=== PATIENT | female | born 1960 | race Caucasian/White ===

== ENCOUNTER 2017-03-20 15:07 | Emergency (ER) | payer SELFPAY ==
--- NOTE | ~2017-03-20 | CT4 ---
[facility]. [facility] A Service of [facility] RADIOLOGY TEXT RESULTS PATIENT: AFTAB SHEPARD LOCATION: SED : 64 UNIT #: [id number] AGE: [address]: Dylan Holman MD SEX: F ORDER DR: [id number] [place] [id number] E MR#: [id number] Acc #: [id number] NAME: AFTAB SHEPARD : 1960 SEX: F STUDY DATE/TIME: 03/20/2017 16:26 UNIT: SED ROOM: STUDY DESCRIPTION: CT Abd and Pelv Wo Cont Attending Physician: Dylan Holman M.D. Ordering Physician: Dylan Holman M.D. Primary Care Physician: Zee Coffman M.D. MEDICAL IMAGING REPORT This report is preliminary unless electronic signature is present. EXAM CT abdomen and pelvis, 03/20 INDICATION Right side groin pain for 4-5 days. TECHNIQUE Axial images were obtained through the abdomen and pelvis without contrast. Multiplanar reformats were obtained. Comparison is made with 03/27/2016. This CT exam was performed with one or more of the following radiation dose reduction techniques: automatic exposure control, adjustment of mA and/or kV according to patient size, and iterative reconstruction. FINDINGS ABDOMEN: Lung bases are clear. Gallbladder is surgically absent. No renal or ureteral stones are seen and there is no hydronephrosis. There is fatty infiltration of the liver. The unenhanced solid organs are otherwise normal. The unopacified GI tract is normal except for colonic diverticulosis. PELVIS: The appendix is normal. There is diffuse sigmoid diverticulosis. There is some fat stranding in the mid sigmoid colon similar in appearance to the prior study suggesting mild acute diverticulitis. The rest of the GI tract is unremarkable. Solid pelvic organs are normal. No lower ureteral stones are seen. The urinary bladder is normal. IMPRESSION 1. No renal or ureteral stones. No hydronephrosis. 2. Mild acute mid sigmoid diverticulitis, similar to the patient's prior exam. [facility] A Service of [facility] RADIOLOGY TEXT RESULTS PATIENT: AFTAB SHEPARD LOCATION: [facility] : 64 UNIT #: [id number] AGE: [address]: Dylan Holman MD SEX: F ORDER DR: 3. There is diffuse colonic diverticulosis. The appendix is normal. 4. Interval cholecystectomy. 5. Fatty infiltration of the liver. Dictated by... Yordan Love Jr., M.D. THIS IS AN ELECTRONICALLY VERIFIED REPORT Yordan Love Jr., M.D. at 03/22/2017 7:35 AM ARTIS/ivan TD: 03/21/2017 02:09 JOB #: [id number] MEDICAL IMAGING REPORT Page 1 of 1
[~2017-03-20 15:07] MED LIST: ALBUTEROL 0.5ML INH; ALBUTEROL17 G1 INH; ALBUTEROL17 GM INH; ALDACTAZIDE 25/1 TA1 PO; ALDACTONE25 MG PO; AMLODIPINE BESYL5 MG PO; AMOXICILLIN PO; ATARAX PO; ATENOLOL; ATIVAN PO; ATIVAN0.5 M1 PO; AVELOX400 M1 PO; BACLOFEN10 MG PO; BACTRIM DS TABL1 TA1 PO; BENADRYL25 M1 PO; BENZONATATE PO; CARAFATE1 G PO; CHLORTHALIDONE25 M1 PO; CIPRO PO; COLCRYS0.6 M2 PO; COMBIVENT14.7 GM INH; CYPROHEPTADINE H4 MG PO; DELTASONE20 MG PO; DICLOFENAC PO; DICYCLOMINE HCL20 MG PO; DISCONTINUED MED; DOXYCYCLINE HY100 M3 PO; DOXYCYCLINE150 MG PO; DUONEB 2.5-0.5 M3 ML NEB; EC-NAPROSYN500 MG PO; ERYTHROMYC3.5 GM OPT OS; EXCEDRIN MIGRAI1 TA1; FIORICET1 TAB DOB; FLAGYL PO; FLEXERIL PO; FLEXERIL10 MG PO; FLONASE 0.05% N16 G1; FLONASE16 GM; FLOVENT7.9 GM INH; GLUCOPHAGE500 MG PO; HIBICLENS118 ML; HYCODAN60 ML 5MG/ PO; HYDROCODON-ACE1 EAC7 PO; IMITREX; IMITREX4 MG/0.5 M SQ; IMITREX6 MG/0.5 M SQ; LEVAQUIN PO; LEVEMIR SUBQ; LIDOCAINE PATCH 5% TOP; LISINOPRIL10 MG PO; LODINE400 MG PO; LORTAB 5/500 TA1 TA1 PO; MAGIC MOUTH WASH PO; MEDROL PO; METFORMIN PO; MILK OF MA800 MG/5 M PO; MOBIC PO; MOBIC15 MG PO; MORGIDOX100 MG PO; MOTRIN600 MG PO; MUCINEX D ER T1 EACH PO; MUCINEX D PO; MYCOSTATIN15 GM TOP; NAPROXEN PO; NO MEDICATIONS; NORVASC10 MG PO; NOVOLOG100 U/ML SUBQ; OMEPRAZOLE40 M1 PO; OMNICEF300 M1 PO; OXYCODONE15 M1 PO; PERCOCET 10/3251 TAB PO; PERCOCET PO; PHENERGAN DM1 ML PO; PHENERGAN25 MG PO; PHENTERMINE H37.5 M1 PO; PREDNISONE PO; PREDNISONE10 MG PO; PREDNISONE10 MG/DOSE; PREDNISONE10 MG/DOSE PO; PREDNISONE5 M1 PO; PREDNISONE50 MG PO; PRILOSEC20 MG PO; PRILOSEC40 MG PO; PROTONIX PO; PROVENTIL5 MG/ML INH; PYRIDIUM PO; QVAR7.3 G1 IH; QVAR7.3 G1 INH; ROBITUSSIN15 MG/5 ML PO; SENNA8.6 M2 PO; SINGULAIR PO; SPIRONOLACTONE-1 TAB PO; SUDAFED PO; SYMBICORT INH; TORADOL10 MG PO; TRADJENTA5 MG PO; TUSSIONEX PENN473 ML PO; TUSSIONEX PENN480 ML PO; ULTRAM PO; VIBRAMYCIN100 M1 PO; VICODIN 5/500 T1 TAB PO; VOLTAREN75 MG PO; XARELTO10 MG PO; ZANAFLEX; ZANAFLEX4 M1 PO; ZANTAC150 MG PO; ZITHROMAX PO; ZOFRAN PO; ZYRTEC PO; ZYRTEC10 M2 PO; [UNRECOGNIZED DRUG - OTHER] PO; [UNRECOGNIZED DRUG - REMARK]; [UNRECOGNIZED DRUG - SUPPLY]
[2017-03-20] MEDS ORDERED: LANTUS100 U/ML (15:20)
[2017-03-20] MEDS ORDERED: METOPROLOL SUCC25 MG (15:21)
[2017-03-20 15:38] LABS: URINE SOURCE CLEAN CATCH
[2017-03-20 15:41] LABS: MICRO INDICATED? YES; URINE APPEARANCE SL CLOUDY; URINE BILIRUBIN NEG (NEG); URINE BLOOD 2+ (NEG); URINE COLOR YELLOW; URINE GLUCOSE NEG (NORM); URINE KETONE NEG (NEG); URINE LEUKOCYTE ESTERASE 3+ (NEG); URINE NITRATE NEG (NEG); URINE PH 5.5 (5-8); URINE PROTEIN 1+ (NEG); URINE UROBILINOGEN 0.2 MG/DL (NORM)
[2017-03-20 15:45] LABS: CULTURE INDICATED? YES; URINE BACTERIA 3+ (NEG); URINE SQUAMOUS EPITHELIAL CELL MODERATE /[HPF]; URINE WBC INNUM /[HPF] (0-5)
== END 2017-03-20 17:46 | disposition home or self-care (01) ==
LOC: SED 15:07
PROVIDERS: Emergency Medicine
DX: K57.32 Diverticulitis of large intestine without perforation or abscess without bleeding (principal); N12 Tubulo-interstitial nephritis, not specified as acute or chronic; I10 Essential (primary) hypertension; E11.9 Type 2 diabetes mellitus without complications; Z79.4 Long term (current) use of insulin; E66.9 Obesity, unspecified; G43.909 Migraine, unspecified, not intractable, without status migrainosus; Z87.891 Personal history of nicotine dependence
CPT/HCPCS: 74176; 81003; 87086; 87088; 87186; 96372; 99284; J1170; J2550

== ENCOUNTER → 2017-06-16 | Outpatient (CLI) | payer MEDICARE ==
[~2017-06-16] MED LIST changes: +LANTUS100 U/ML; +METOPROLOL SUCC25 MG
--- NOTE | ~2017-06-16 | MY30 ---
[facility]. [facility] A Service of [facility] RADIOLOGY TEXT RESULTS PATIENT: AFTAB SHEPARD LOCATION: [facility] : 64 UNIT #: [id number] AGE: [address]: KRISTEN HONEYCUTT APRN SEX: F ORDER DR: [id number] [address] [id number] [id number] O MR#: [id number] Acc #: [id number] NAME: AFTAB SHEPARD : 1960 SEX: F STUDY DATE/TIME: 06/16/2017 15:35 UNIT: [facility] ROOM: STUDY DESCRIPTION: MY SCREEN MATILDA BILAT DIGITAL Attending Physician: Kristen Honeycutt Aprn Referring Physician: Kristen Honeycutt Aprn Ordering Physician: Kristen Honeycutt Aprn Primary Care Physician: Zee Coffman M.D. MEDICAL IMAGING REPORT This report is preliminary unless electronic signature is present. EXAM Digital screening mammogram 06/16/2017 HISTORY 57-year-old woman. No risk elevation. Annual screen. COMPARISON Mammogram 02/27/2008 [facility]. FINDINGS Digital imaging of each breast was completed utilizing a two-view examination of each breast in craniocaudal and mediolateral-oblique projections. Review and interpretation of digital mammograms include a second review in conjunction with FDA-approved CAD device. There is a normal parenchymal presentation bilaterally consistent with the patient's age. There are no breast masses imaged and no parenchymal asymmetry is visualized. There are no suspicious microcalcifications and I see no focal architectural disturbance. IMPRESSION Negative screening digital mammogram. One-year followup recommended. Patients over the age of 40 are entered into a reminder system with target due date for the next mammogram. A result letter will also be sent to the patient. BIRADS: 1 Negative STAT * RESULT [facility]. [facility] A Service of [facility] RADIOLOGY TEXT RESULTS PATIENT: AFTAB SHEPARD LOCATION: [facility] : 64 UNIT #: [id number] AGE: [address]: KRISTEN HONEYCUTT APRN SEX: F ORDER DR: Dictated by... Philipp Hill M.D. THIS IS AN ELECTRONICALLY VERIFIED REPORT Philipp Hill M.D. at 06/27/2017 3:01 PM FLORECITA/trell TD: 06/27/2017 13:21 JOB #: [id number] MEDICAL IMAGING REPORT Page 1 of 1
== END | disposition home or self-care (01) ==
LOC: SMAM 14:53
DX: Z12.31 Encounter for screening mammogram for malignant neoplasm of breast (principal)
CPT/HCPCS: G0202